=== PATIENT | male | born 1975 | race Caucasian/White ===

== ENCOUNTER 2020-08-22 18:50 | Inpatient (IN) | payer SELFPAY ==
[~2020-08-22] VITALS: Ht 172.7 cm; Wt 100.7 kg
[2020-08-22 18:56] VITALS: BP 128/69
--- NOTE | 2020-08-22 19:10 | NUR ---
PATIENT AMBUALTED TO BED 11 WITH STEADY GAIT.
--- NOTE | 2020-08-22 19:16 | NUR ---
PATIENT 44 Y/O MALE BIB SELF FOR C/O GENERALIZED WEAKNESS X 1 MONTH. PATIENT PRESENTS WITH RUQ AND LUQ ABD PAIN X 1 MONTH. PATIENT STATES HE HAS "LIVER PROBLEMS." D/T DRINKING 1 PINT OF WHISKEY DAILY X 1 MONTH. PATIENT DENIES N/V. PATIENT STATES STOOLS ARE DARK BLACK ON COLOR. PATIENT NOTED WITH BLEEDING GUMS. PATIENT NOTED WITH JAUNDICE. BLIATERAL PITTING EDEMA +1 NOTED ON BLE. PATIENT ON CARIDAC MONITOR. VSS. MEDHX: "LIVER ISSUES" ALLERGIES" NKA
--- NOTE | 2020-08-22 19:20 | NUR ---
IV PLACED IN L AC 20G. LABS DRAWN AND GIVEN TO ELECTRONIC COILS SUPERVISOR.
--- NOTE | 2020-08-22 19:22 | NUR ---
Narinder crisostomo in ED - 08/22/20 at 1931 by [id number] ERMD AT BEDSIDE EVALUATING PATIENT.
--- NOTE | 2020-08-22 19:22 | NUR ---
ERMD AT BEDSIDE EVALUATING PATIENT.
[2020-08-22] MEDS ORDERED: NACL 0.9% 1,000 ML IV ONE (19:30)
[2020-08-22] MEDS ORDERED: THIAMINE 200 MG/2 ML VIAL IM ONE (19:30)
[2020-08-22] MEDS ORDERED: FOLIC ACID 5 MG/ML SYR IM ONE (19:30)
[2020-08-22] MEDS ORDERED: MAG SULF 2000 MG/WATER PREMIX 50 ML IV ONE (19:30)
--- NOTE | 2020-08-22 19:30 | NUR ---
ekg performed at bedside. ekg reads sinus tachycardia @ 106
--- NOTE | 2020-08-22 19:30 | NUR ---
EKG BEING PERFORMED AT BEDSIDE.
--- NOTE | 2020-08-22 19:32 | NUR ---
XRAY AT BEDSIDE.
[2020-08-22] MEDS ORDERED: MULTIVITAMIN-12 10 ML in NACL 0.9% 1,000 ML IV SCH (19:45)
[2020-08-22 19:47] LABS: BASOPHILS # (AUTO) 0.1 K/uL (0.00-0.22); BASOPHILS % (AUTO) 2.6 % (0.0-2.0); EOSINOPHILS # (AUTO) 0.2 K/uL (0-0.4); EOSINOPHILS % (AUTO) 3.9 % (0.0-4.0); LYMPHOCYTES # (AUTO) 1.4 K/uL (2.0-11.5); LYMPHOCYTES % (AUTO) 25.7 % (20.5-51.1); MEAN CORPUSCULAR HEMOGLOBIN 24 pg (27-31); MEAN CORPUSCULAR HGB CONC 32 g/dL (33-37); MEAN CORPUSCULAR VOLUME 74.7 fL (80-94); MONOCYTES # (AUTO) 0.7 K/uL (0.8-1.0); MONOCYTES % (AUTO) 12.2 % (1.7-9.3); NEUTROPHILS % (AUTO) 55.6 % (42.2-75.2); PLATELET COUNT (AUTO) 88 K/uL (140-450); RED BLOOD CELL COUNT(AUTO) 1.92 MIL/uL (4.20-6.10); RED CELL DISTRIBUTION WIDTH 17.8 % (11.6-13.7); WHITE BLOOD COUNT (AUTO) 5.4 K/uL (4.8-10.8)
[2020-08-22] MEDS ORDERED: MULTIVITAMIN-12 10 ML VIAL IV ONE (19:50)
[2020-08-22 19:56] LABS: HEMATOCRIT 14.4 % (36-52); HEMOGLOBIN 4.5 g/dL (12.0-18.0)
[2020-08-22] MEDS ORDERED: PANTOPRAZOLE 40 MG INJ VIAL IVP ONE (20:10)
--- NOTE | 2020-08-22 20:13 | NUR ---
US AT BEDSIDE. BLOOD TRANSFUSION CONSENT SIGNED BY PATIENT.
[2020-08-22 20:14] LABS: PROTHROMBIN TIME 21.6 secs (10.8-13.4)
[2020-08-22 20:16] LABS: ALBUMIN 2.4 g/dL (3.4-5.0); ANION GAP 9.5 (8-16); CARBON DIOXIDE 26.8 mmol/L (21-32); CREATININE 0.5 mg/dL (0.6-1.3); POTASSIUM 3.3 mmol/L (3.5-5.1); TOTAL BILIRUBIN 3.7 mg/dL (0.0-1.0)
--- NOTE | 2020-08-22 20:59 | NUR ---
ELLE AND EREN COLLECTED AND SENT TO LAB.
[2020-08-22] MEDS ORDERED: POTASSIUM CHLORIDE 10 MEQ TABER PO ONE ×2 (21:45→22:05)
--- NOTE | 2020-08-22 22:02 | NUR ---
RECTAL EXAM PERFORMED BY ROXANN.
[2020-08-22] MEDS ORDERED: PROTHROMBIN COMPLEX HUMAN 500 UNITS KIT IV ONE (22:05)
--- NOTE | 2020-08-22 22:05 | NUR ---
Per ERMD administer 2500 units of KCentra due to elevated PTT , INR and decreased Platelet count.
--- NOTE | 2020-08-22 22:45 | NUR ---
Consent signed per PATIENT agreeing to administration of blood. Blood has been type and crossmatched. Blood sent from blood bank. Information on unit of blood checked against patient wristband at bedside by two nurses. All information matches. Patient or responsible constitution party informed of potential complications associated with blood transfusion. Informed of possible transfusion reaction symptoms. Aware of need to notify nurse at once of itching, shortness of breath, flushing, feeling of impending doom, or other symptoms not previously present. Vital signs taken within 5 minutes prior to initiation of transfusion. RN will remain with patient for first 15 minutes of transfusion at which time vital signs will be re-assessed.
[2020-08-22] MEDS ORDERED: ZOLPIDEM 5 MG TAB PO PRN (22:50)
[2020-08-22] MEDS ORDERED: ONDANSETRON 4 MG/2 ML VIAL IM/IVP PRN (22:50)
[2020-08-22] MEDS ORDERED: DOCUSATE SODIUM 100 MG GELCAP PO PRN (22:50)
[2020-08-22] MEDS ORDERED: POTASSIUM CHLORIDE 10 MEQ TABER PO PRN (22:50)
[2020-08-22] MEDS ORDERED: guaiFENesin DM 200/20 MG-10 ML 10 ML UDC PO PRN (22:50)
[2020-08-22] MEDS ORDERED: ACETAMINOPHEN 325 MG TAB PO PRN (22:50)
[2020-08-22] MEDS ORDERED: PHYTONADIONE 10 MG/ML AMP SUBQ ONE (23:00)
[2020-08-22] MEDS ORDERED: IRON SUCROSE COMPLEX 100 MG/5 ML VIAL IVP ONE (23:00)
[2020-08-22 23:24] LABS: CHOL/HDL RATIO 3.4 (1-4.5); FREE T4 (FREE THYROXINE) 1.2 ng/dL (0.76-1.46); MAGNESIUM 1.6 mg/dL (1.8-2.4); PHOSPHORUS 3.9 mg/dL (2.5-4.9); THYROID STIMULATING HORMONE 1.26 uIU/mL (0.34-3.74)
[2020-08-22 23:37] LABS: APPEARANCE,URINE CLEAR (CLEAR); BILIRUBIN,URINE 1+ (NEGATIVE); BLOOD, URINE 1+ (NEGATIVE); COLOR,URINE YELLOW (YELLOW); LEUKOCYTE ESTERASE ,URINE NEGATIVE (NEGATIVE); NITRITE, URINE NEGATIVE (NEGATIVE); UGLUCOSE NEGATIVE (NEGATIVE)
[2020-08-22 23:44] LABS: RBC,URINE 0-5 /HPF (0-5); WBC,URINE 0-5 /HPF (0-5)
[2020-08-22 23:45] LABS: BARBITURATE, URINE NEGATIVE ng/ml (NEG <=200); BENZODIAZEPINE, URINE NEGATIVE ng/mL (NEG <=200); CANNABINOID, URINE NEGATIVE ng/mL (NEG <=50); COCAINE, URINE NEGATIVE ng/mL (NEG <=300); OPIATE, URINE NEGATIVE ng/mL (NEG <=2000); PHENCYCLIDINE SCREEN,URINE NEGATIVE ng/mL (NEG <=25)
--- NOTE | 2020-08-23 00:42 | NUR ---
Patient appears to be resting comfortably in bed. Vital Signs within normal limits. Respirations even and unlabored. No adverse reaction noted from blood transfusion.
[2020-08-23] MEDS: DEXT 5% /NACL 0.9% 1,000 ML IV SCH ×4 (01:25→13:56)
--- NOTE | 2020-08-23 01:30 | NUR ---
Patient will be admitted to care of . Admited to TELE. Will go to room 114. Belongings list completed. Report to LORI RN given.
[2020-08-23 02:35] VITALS: BP 131/72
--- NOTE | 2020-08-23 02:35 | NUR ---
ADMITTED A 44M FROM ER. CAME BY DEBBIE DUE TO EPIGASTRIC PAIN , SWELLING OF BOTH FEET, GEN WEAKNESS WHO HAS BLOOD IN STOOL PREVIOUSLY. NO SOB NOTED AT THIS TIME. 99% O2 SAT ON RA. CAME IN WITH LOW HGB AND HCT COUNT. JUST HAD I UNIT PRBC GIVEN IN ER. NEED 2 MORE UNITS . ON TELE MONITOR-ST. AWAKE,ALERT AND ORIENTED X4. AMBULATE BUT WITH SLIGHT WEAKNESS NOTED. PLAN OF CARE DISCUSSED AND VERBALIZED UNDERSTANDING. FREQ ROUNDS NEEDED. PCR COVID-19 TEST PENDING. PLACED ON DROPLET PRECAUTION UNTIL RESULT CAME IN. ORIENTED TO HOSPITAL ROUTINES. BED ON LOW POSITION. SIDE RAILS UP X2. CALL LIGHT AND URINAL WITHIN EASY REACH. WILL CONTINUE TO MONITOR.
--- NOTE | 2020-08-23 03:30 | NUR ---
2ND UNIT PRBC STARTED AFTER VERIFIED WITH ANOTHER RN, LAY WITH THE PT. VITAL SIGNS TAKEN PRIOR TO START OF TRANSFUSION. WILL CONTINUE TO MONITOR.
[2020-08-23 04:00] VITALS: BP 141/73
[2020-08-23] MEDS ORDERED: IRON SUCROSE COMPLEX 100 MG/5 ML VIAL ONE (04:20)
[2020-08-23] MEDS ORDERED: PHYTONADIONE 10 MG/ML AMP ONE (04:20)
--- NOTE | 2020-08-23 05:00 | NUR ---
BLOOD TRANSFUSION STILL GOING ON. NO REACTION NOTED . WILL CONTINUE TO MONITOR.
--- NOTE | 2020-08-23 05:56 | NUR ---
INSTRUCTED PT THE NEED FOR STOOL FOR OB. CONTAINER IN BATHROOM.
--- NOTE | 2020-08-23 07:12 | NUR ---
2ND UNIT PRBC TRANSFUSED WITH NO REACTION NOTED. VITAL SIGNS STABLE.
--- NOTE | 2020-08-23 07:30 | NUR ---
ENDORSED PT IN STABLE CONDITION TO AM NURSE.
[2020-08-23 08:00] VITALS: BP 133/74
--- NOTE | 2020-08-23 08:14 | NUR ---
PATIENT IS AOX4, CROATIAN SPEAKING, SINUS TACHY ON TRACK SUPERVISOR, RESPIRATIONS EVEN AND UNLABORED ON ROOM AIR. PATIENT DENIES PAIN. AMBULATING TO BATHROOM, STEADY. HAD 1X DARK TARRY STOOL. NOTED BLEEDING IN GUMS, GAVE PATIENT GAUZE TO PREVENT FURTHER BLEEDING. UPDATED PATIENT ON PLAN OF CARE. IV FLUIDS INFUSING. WILL CONTINUE TO MONITOR
--- NOTE | 2020-08-23 08:28 | NUR ---
PATIENT HAS BEEN SCREENED AND CATEGORIZED MODERATE NUTRITION RISK. PATIENT WILL BE SEEN WITHIN 3-5 DAYS OF ADMISSION. 08/25/20 08/27/[address]
[2020-08-23 09:11] LABS: BASOPHILS # (AUTO) 0.1 K/uL (0.00-0.22); EOSINOPHILS # (AUTO) 0.1 K/uL (0-0.4); MONOCYTES # (AUTO) 0.6 K/uL (0.8-1.0)
[2020-08-23 09:26] LABS: BASOPHILS % (AUTO) 1.3 % (0.0-2.0); EOSINOPHILS % (AUTO) 1.6 % (0.0-4.0); HEMATOCRIT 20.9 % (36-52); LYMPHOCYTES # (AUTO) 0.8 K/uL (2.0-11.5); LYMPHOCYTES % (AUTO) 16.7 % (20.5-51.1); MEAN CORPUSCULAR HEMOGLOBIN 25 pg (27-31); MEAN CORPUSCULAR HGB CONC 32 g/dL (33-37); MEAN CORPUSCULAR VOLUME 78.9 fL (80-94); MONOCYTES % (AUTO) 11.8 % (1.7-9.3); NEUTROPHILS # (AUTO) 3.4 K/uL (1.8-7.7); NEUTROPHILS % (AUTO) 68.6 % (42.2-75.2); PLATELET COUNT (AUTO) 81 K/uL (140-450); RED BLOOD CELL COUNT(AUTO) 2.65 MIL/uL (4.20-6.10); RED CELL DISTRIBUTION WIDTH 17.4 % (11.6-13.7)
[2020-08-23 09:29] LABS: HEMOGLOBIN 6.7 g/dL (12.0-18.0)
[2020-08-23] MEDS: PANTOPRAZOLE 40 MG INJ VIAL IVP SCH (09:36)
[2020-08-23 09:37] LABS: ANION GAP 11.6 (8-16); CARBON DIOXIDE 22.9 mmol/L (21-32); CREATININE 0.5 mg/dL (0.6-1.3); POTASSIUM 3.5 mmol/L (3.5-5.1)
--- NOTE | 2020-08-23 11:41 | NUR ---
STARTED BLOOD TRANSFUSION. EXPLAINED S/S TRANSFUSION REACTION. VITALS STABLE AT THIS TIME. WILL MONITOR CLOSELY.
[2020-08-23 12:00] VITALS: BP 139/76
[2020-08-23] MEDS ORDERED: OCTREOTIDE ACETATE 1.25 MG in NACL 0.9% 250 ML IV SCH (13:00)
--- NOTE | 2020-08-23 13:45 | NUR ---
PATIENT FINISHED 1U PRBC BLOOD TRANSFUSION, TOLERATED WELL WITH NO TRANSFUSION REACTIONS NOTED.
--- NOTE | 2020-08-23 14:00 | NUR ---
OCTREOTIDE DRIP STARTED. UPDATED DR. VILLANUEVA, NO NEED TO TRANSFER TO ICU.
--- NOTE | 2020-08-23 15:22 | NUR ---
SOCIAL WORK NOTE: Patient's Orientation Person Situation Place Time Information Provided By PATIENT Comments SW MET WITH PATIENT AT BEDSIDE TO COMPLETE ASSESSMENT. Volunteer Services Coordinator, Realtionship and Phone Number ANDI KEITA [phone] Healthcare Power of Retail Specialist No Does Patient Have a POLST No Identifying Problems Substance Abuse Is A Social Work Consult Needed No Mandate Report Filed No Explanation Of Identifying Problems PATIENT IS A 44-YEAR-OLD MALE ADMITTED FOR NEW ONSET CIRRHOSIS. PATIENT HAS PMHX OF ALCOHOL ABUSE. HARLEY PROVIDED PATIENT SUBSTANCE ABUSE RESOURCES. Admitted From Home Pre-Admission Level Of Functioning Status Independent/Ambulatory Prior Resources/Services Used In Last 12 Months Substance Use Prior DME No Prior DME Used Dialysis Comments N/A Living Situation Apartment Lives With Family Other Living Situation/Comment PATIENT STATED THAT HE LIVES WITH HIS NIECE AND HE IS NOW WITH . Patient Had Caregiver No Home Support No Caregiver Issues Financial Issues No Known Financial Issue Referral To The Financial Counselor Needed No Factors/Needs Drug/Alcohol Treatment Pt/Rep Participated In Discharge Plan Yes Patient/Family Agress With Discharge Plan Yes Discharge Plan Comments TENTATIVE DISCHARGE PLAN IS FOR PATIENT TO RETURN HOME. DC Plan Status Initiated
[2020-08-23 15:36] LABS: HEMATOCRIT 22.9 % (36-52); HEMOGLOBIN 7.5 g/dL (12.0-18.0)
--- NOTE | 2020-08-23 15:45 | NUR ---
REPEAT HGB/HCT 7.5. NOTIFIED DR. VILLANUEVA. ORDERS TO KEEP 1UPRBC ON STANDBY.
[2020-08-23 16:00] VITALS: BP 132/69
--- NOTE | 2020-08-23 18:51 | NUR ---
PATIENT DENIES PAIN. IV FLUIDS INFUSING WITH OCTREOTIDE DRIP. ONLY HAD 1X DARK TARRY BM TODAY. STILL BLEEDING FROM GUMS. NPO. WILL ENDORSE TO NIGHT RN.
[2020-08-23 20:00] VITALS: BP 123/66
--- NOTE | 2020-08-23 22:00 | NUR ---
PER AM BNURSE PT HAD GUM BLEEDING - WILL MONITOR ACTIVE BLEEDING .
[2020-08-24] VITALS: BP 112/66
--- NOTE | 2020-08-24 | NUR ---
MADE ROUNDS , NO S/X OF ACUTE DISTRESS NOTED
[2020-08-24 04:00] VITALS: BP 112/63
--- NOTE | 2020-08-24 04:00 | NUR ---
O2 SAT WNL . NO S/X OF ACUTE DISTRESS .
--- NOTE | 2020-08-24 06:30 | NUR ---
PER PT WHEN HE WIPED HIS EYES THERE IS STREAK BLOOD ON TISSUE PAPER- ASSESS EYES - NO SIGNS OF BLEEDING NOTED . WILL ENDORSE.
[2020-08-24] MEDS: DEXT 5% /NACL 0.9% 1,000 ML IV SCH ×2 (06:50→18:00)
[2020-08-24 07:15] LABS: ANION GAP 11.3 (8-16); CARBON DIOXIDE 23.8 mmol/L (21-32); CREATININE 0.6 mg/dL (0.6-1.3); POTASSIUM 4.1 mmol/L (3.5-5.1)
--- NOTE | 2020-08-24 07:30 | NUR ---
ENDORSED- PT - STABLE
--- NOTE | 2020-08-24 07:30 | NUR ---
RECEIVED REPORT FROM NIGHT NURSE PT IS AAOX4, ROOM AIR, AMBULATORY, NPO EXCEPT MEDS POSITIVE OCCULT BLOOD, S/P 3 UNITS PRBC AND 1 UNIT PRBC STANDBY, LIVER ULTRASOUND POSITIVE FOR LIVER DISEASE, WITH SANDOSTATIN AT 10CC/HR. IV INTACT ON RIGHT AC AND LEFT AC. PCR PENDING. SAFETY MEASURES IN PLACE AND CALL LIGHT WITHIN REACH. WILL CONTINUE TO MONITOR.
[2020-08-24 08:00] VITALS: BP 120/67
[2020-08-24] MEDS: PANTOPRAZOLE 40 MG INJ VIAL IVP SCH (08:24)
--- NOTE | 2020-08-24 08:24 | NUR ---
MEDICATION DUE GIVEN CHECK VITAL SIGNS PRIOR TO MEDICATION BP 120/67 [place] 96.WITH MINIMAL BLEEDING IN THE GUMS.
[2020-08-24 08:56] LABS: BASOPHILS # (AUTO) 0.1 K/uL (0.00-0.22); BASOPHILS % (AUTO) 1.2 % (0.0-2.0); EOSINOPHILS # (AUTO) 0.2 K/uL (0-0.4); EOSINOPHILS % (AUTO) 2.7 % (0.0-4.0); HEMATOCRIT 21.6 % (36-52); LYMPHOCYTES # (AUTO) 0.8 K/uL (2.0-11.5); LYMPHOCYTES % (AUTO) 13.1 % (20.5-51.1); MEAN CORPUSCULAR HEMOGLOBIN 25 pg (27-31); MEAN CORPUSCULAR HGB CONC 32 g/dL (33-37); MEAN CORPUSCULAR VOLUME 80.1 fL (80-94); MONOCYTES # (AUTO) 0.9 K/uL (0.8-1.0); MONOCYTES % (AUTO) 13.2 % (1.7-9.3); NEUTROPHILS # (AUTO) 4.5 K/uL (1.8-7.7); NEUTROPHILS % (AUTO) 69.8 % (42.2-75.2); PLATELET COUNT (AUTO) 96 K/uL (140-450); RED BLOOD CELL COUNT(AUTO) 2.69 MIL/uL (4.20-6.10); RED CELL DISTRIBUTION WIDTH 17.2 % (11.6-13.7); WHITE BLOOD COUNT (AUTO) 6.5 K/uL (4.8-10.8)
[2020-08-24 09:12] LABS: HEMOGLOBIN 6.8 g/dL (12.0-18.0)
--- NOTE | 2020-08-24 09:44 | NUR ---
RECEIVED CRITICAL LAB FROM LAB HEMOGLOBIN 6.[address] RICH RICHARDS AND RECEIVED ORDER TO TRANSFUSE 1 UNIT PRBC. I UNIT PRBC ON STANDBY AT BLOOD BANK.
--- NOTE | 2020-08-24 10:30 | NUR ---
BLOOD TRANSFUSION STARTED VITAL SIGNS TAKEN BP 132/71 [place] 00 RR 20 TEMP 98.6 OXYGEN SATURATION 98% NO TRANSFUSION REACTION AND EDUCATED PT OF ANY SIGNS OR SYMPTOMS OF TRANSFUSION REACTION. NO DISTRESS NOTED.
--- NOTE | 2020-08-24 10:48 | NUR ---
MADE A FOLLOW UP CALL TO DR. Wily DIXON REGARDING THE GI CONSULT, DR. DIXON STATED HE WILL COME IN AN HOUR.
[2020-08-24 12:00] VITALS: BP 118/62
--- NOTE | 2020-08-24 12:30 | NUR ---
PATIENT WAS SEEN BY DR DIXON AND RECOMMENDED FOR EGD, EPLAINED THE PROCEDURE TO THE PATIENT AND FAMILY PATIENT AGREED TO DO THE PROCEDURE AND SIGNED THE CONSENT ALL QUESTIONS ARE ANSWERED.
[2020-08-24] MEDS ORDERED: PHYTONADIONE 10 MG/ML AMP IV SCH (13:00)
--- NOTE | 2020-08-24 13:34 | NUR ---
VITAMIN K GIVEN TO THE PATIENT TOLERATED WELL,
--- NOTE | 2020-08-24 13:45 | NUR ---
BLOOD TRANSFUSION COMPLETE NO TRANSFUSION REACTION PT IS STABLE.
--- NOTE | 2020-08-24 13:50 | NUR ---
PATIENT OUT OF HIS ROOM FOR EGD UNDER DR DIXON. PT IS STILL TRANSFUSING BLOOD AND PT IS STILL STABLE.
[2020-08-24] MEDS ORDERED: fentaNYL citrate 0.05 MG/ML VIAL ONE (14:00)
[2020-08-24] MEDS ORDERED: MIDAZOLAM 5 MG/5 ML VIAL ONE (14:01)
[2020-08-24] MEDS ORDERED: diphenhydrAMINE 50 MG/ML VIAL ONE (14:01)
[2020-08-24] MEDS: MIDAZOLAM 2 MG/2 ML VIAL IVP SCH ×2 (14:10→15:30)
[2020-08-24] MEDS: fentaNYL citrate 0.05 MG/ML VIAL IVP SCH ×2 (14:11→15:27)
--- NOTE | 2020-08-24 14:36 | NUR ---
PATIENT BACK IN HIS ROOM NO GI BLEED CHECK VITAL SIGNS BP 87/55 [place] 90 RR 22 TEMP 99.7 OXYGEN SATURATION 94% WILLL RECHECK AND MONITOR PATIENT.
[2020-08-24] MEDS ORDERED: SIMETHICONE 40 MG/0.6 ML ONE (15:55)
[2020-08-24 16:00] VITALS: BP 112/63
[2020-08-24] MEDS: FERROUS GLUCONATE 324 MG TAB PO SCH (16:49)
--- NOTE | 2020-08-24 17:00 | NUR ---
MEDICATION DUE GIVEN PT IS STABLE NO DISTRESS NOTED AND NO BLEEDING NOTED.
[2020-08-24 18:16] LABS: HEMATOCRIT 23.9 % (36-52); HEMOGLOBIN 7.5 g/dL (12.0-18.0)
[2020-08-24 18:29] LABS: FOLIC ACID 11.9 ng/mL (>3.0)
--- NOTE | 2020-08-24 19:15 | NUR ---
ENDORSED TO NIGHT NURSE FOR CONTINUITY OF CARE. PT IS STABLE.
--- NOTE | 2020-08-24 19:16 | NUR ---
RECEIVED BEDSIDE REPORT FROM DAY TAVO FOWLER. PT AOX4 ON ROOM AIR. NO S/S RESPIRATORY DISTRESS. IV SITE LAC 20G PATENT INTACT, INFUSING IVF ORDERED. SAFETY MEASURES IN PLACE. CALL LIGHT WITHIN REACH. WILL CONTINUE TO MONITOR
[2020-08-24 20:00] VITALS: BP 116/69
[2020-08-24] MEDS: LACTULOSE 20 GM/30 ML UDC PO SCH (20:43)
[2020-08-24] MEDS: HYDROcodone/APAP 7.5/325 MG 1 TAB PO PRN (20:46)
--- NOTE | 2020-08-24 20:46 | NUR ---
ADMINISTERED SCHEDULED MEDICATION. PRN NORCO GIVEN FOR PT C/O OF BILATERAL LOWER BACK PAIN. SAFETY MEASURES IN PLACE. CALL LIGHT WITHIN REACH. WILL CONTINUE TO MONITOR
--- NOTE | 2020-08-24 22:17 | NUR ---
PT ASLEEP IN BED. RESPIRATIONS EVEN UNLABORED. NO DISTRESS NOTED. BED IN LOW POSITION. CALL LIGHT WITHIN REACH. WILL CONTINUE TO MONITOR
[2020-08-25] VITALS: BP 106/66
[2020-08-25] MEDS: DEXT 5% /NACL 0.9% 1,000 ML IV SCH (01:21)
--- NOTE | 2020-08-25 01:21 | NUR ---
PT AWAKE RESTING IN BED. DENIES PAIN, DENIES DISCOMFORT. NO DISTRESS NOTED. BED IN LOW POSITION. CALL LIGHT WITHIN REACH. WILL CONTINUE TO MONITOR
--- NOTE | 2020-08-25 03:31 | NUR ---
PT ASLEEP IN BED, CHEST RISE AND FALL NOTED. BED IN LOW POSITION, CALL LIGHT WITHIN REACH. WILL CONTINUE TO MONITOR
[2020-08-25 04:00] VITALS: BP 141/78
[2020-08-25 06:28] LABS: BASOPHILS # (AUTO) 0.1 K/uL (0.00-0.22); BASOPHILS % (AUTO) 1.6 % (0.0-2.0); EOSINOPHILS # (AUTO) 0.4 K/uL (0-0.4); EOSINOPHILS % (AUTO) 4.9 % (0.0-4.0); HEMATOCRIT 25.2 % (36-52); HEMOGLOBIN 8.1 g/dL (12.0-18.0); LYMPHOCYTES # (AUTO) 1.6 K/uL (2.0-11.5); LYMPHOCYTES % (AUTO) 18.7 % (20.5-51.1); MEAN CORPUSCULAR HEMOGLOBIN 26 pg (27-31); MEAN CORPUSCULAR HGB CONC 32 g/dL (33-37); MEAN CORPUSCULAR VOLUME 81.1 fL (80-94); MONOCYTES # (AUTO) 1.4 K/uL (0.8-1.0); MONOCYTES % (AUTO) 16.7 % (1.7-9.3); NEUTROPHILS # (AUTO) 4.8 K/uL (1.8-7.7); NEUTROPHILS % (AUTO) 58.1 % (42.2-75.2); PLATELET COUNT (AUTO) 106 K/uL (140-450); RED CELL DISTRIBUTION WIDTH 17.6 % (11.6-13.7); WHITE BLOOD COUNT (AUTO) 8.3 K/uL (4.8-10.8)
--- NOTE | 2020-08-25 06:38 | NUR ---
PT RESTING IN BED. NO BLEEDING NOTED. PT HAD BROWN SMEAR ON TOILET PAPER. NO DISTRESS NOTED. BED ON LOW POSITION. CALL LIGHT WITHIN REACH. WILL CONTINUE TO MONITOR
[2020-08-25 06:44] LABS: ANION GAP 11.9 (8-16); CARBON DIOXIDE 24.2 mmol/L (21-32); CREATININE 0.7 mg/dL (0.6-1.3); POTASSIUM 4.1 mmol/L (3.5-5.1)
--- NOTE | 2020-08-25 07:25 | NUR ---
ENDORSED PT TO DAY RN FOR CONTINUITY OF CARE. PT IS IN STABLE CONDITION
[2020-08-25 08:00] VITALS: BP 122/67
--- NOTE | 2020-08-25 08:55 | NUR ---
Patient awake, alert and oriented, able to verbalize needs. Denies pain safety
[2020-08-25] MEDS: LACTULOSE 20 GM/30 ML UDC PO SCH (10:11)
[2020-08-25] MEDS: FERROUS GLUCONATE 324 MG TAB PO SCH ×2 (10:11→18:46)
[2020-08-25] MEDS: PANTOPRAZOLE 40 MG INJ VIAL IVP SCH (10:12)
[2020-08-25] MEDS: HYDROcodone/APAP 7.5/325 MG 1 TAB PO PRN ×2 (10:17→15:11)
--- NOTE | 2020-08-25 13:34 | NUR ---
DC PLANN[age] YRS OLD MALE PATIENT WAS ADMITTED FROM HOME WITH A DX OF NEW ONSET OF CIRRHOSIS, GI BLEEDING AND SEVER ANEMIA. PT HAS A HX OF SEVER ALCOHOLISM. H/H ON ADMISSION. 6.8/21.6 TRANSFUSED 4 UNIT OS PRBC H/H 8.1/25.2. GI DR DIXON PERFORMED EGD NO ACTIVE BLEEDING. AWAITING FOR H -PYLORIC RESULT. REFURBISH TECHNICIAN TO EVALUATE FOR ALCOHOL ABUSE. DC PLAN TO GO HOME WHEN STABLE CM TO FOLLOW
[2020-08-25 14:09] VITALS: BP 122/67
--- NOTE | 2020-08-25 14:32 | NUR ---
Patient keeps complaining of lower abdomen pain that goes to flank area. Called and got an order from Dr Latham to do KUB
[2020-08-25 20:00] VITALS: BP 129/77
--- NOTE | 2020-08-25 20:00 | NUR ---
RECEIVED PT AWAKE, ALERT,ORIENTED X4. PT LAYING IN BED WATCHING TV. DENIES ANY CHEST PAIN, ABDOMINAL PAIN, NAUSEA & VOMITING. PT ABLE TO WALK TO THE BATHROOM WITH NO DISTRESS. VSS ,AFEBRILE, SATING 98% ON RA. SR ON CREDENTIALING SPECIALIST, HR-94. IVF INFUSING ORDERED. CALL LIGHT WITHIN REACH. WILL CONTINUE POC AND MONITORING.
--- NOTE | 2020-08-25 22:00 | NUR ---
NO MEDICATION DUE AT THIS TIME. PATIENT HAS NO COMPLAIN AT THIS MOMENT. CALL LIGHT WITHIN REACH.
[2020-08-26] VITALS: BP 122/78
--- NOTE | 2020-08-26 | NUR ---
MADE ROUNDS. PT CURRENTLY SLEEPING. CALL LIGHT WITHIN REACH.
--- NOTE | 2020-08-26 02:00 | NUR ---
PATIENT ASLEEP AT THIS TIME. VISIBLE CHEST RISE AND FALL NOTED. CALL LIGHT WITHIN REACH
[2020-08-26 04:00] VITALS: BP 120/68
--- NOTE | 2020-08-26 04:00 | NUR ---
VITAL SIGNS STABLE, AFEBRILE, SATING 99% ON RA. NO COMPLAIN OF PAIN AT THIS TIME. SINUS RHYTHM ON STATION REPAIRER, HR-82.
--- NOTE | 2020-08-26 06:00 | NUR ---
NO ACUTE EVENTS THROUGHOUT THE NIGHT. PATIENT STABLE. NO COMPLAIN AT THIS TIME. WILL ENDORSE THE PT TO THE ONCOMING RN FOR CONTINUITY OF CARE. CALL LIGHT WITHIN REACH.
[2020-08-26 07:14] LABS: BASOPHILS # (AUTO) 0.2 K/uL (0.00-0.22); BASOPHILS % (AUTO) 2.8 % (0.0-2.0); EOSINOPHILS # (AUTO) 0.4 K/uL (0-0.4); EOSINOPHILS % (AUTO) 6.9 % (0.0-4.0); HEMATOCRIT 24.1 % (36-52); HEMOGLOBIN 7.7 g/dL (12.0-18.0); LYMPHOCYTES % (AUTO) 18.9 % (20.5-51.1); MEAN CORPUSCULAR HEMOGLOBIN 26 pg (27-31); MEAN CORPUSCULAR HGB CONC 32 g/dL (33-37); MEAN CORPUSCULAR VOLUME 80.9 fL (80-94); MONOCYTES # (AUTO) 0.9 K/uL (0.8-1.0); MONOCYTES % (AUTO) 16.4 % (1.7-9.3); PLATELET COUNT (AUTO) 105 K/uL (140-450); RED BLOOD CELL COUNT(AUTO) 2.98 MIL/uL (4.20-6.10); RED CELL DISTRIBUTION WIDTH 17.9 % (11.6-13.7); WHITE BLOOD COUNT (AUTO) 5.5 K/uL (4.8-10.8)
--- NOTE | 2020-08-26 07:20 | NUR ---
RECEIVED ENDORSEMENT FROM BANKMAN NURSE FOR CONTINUATION OF CARE. PATIENT IN BED AOX4. ON ROOM AIR. PATIENT HAS REGULAR DIET. IV SITE IN PLACE AND INTACT. SAFETY MEASURES ARE IN PLACE. CALL LIGHT WITHIN REACH. WILL CONTINUE TO MONITOR NEEDED.
[2020-08-26 07:28] LABS: ANION GAP 11.4 (8-16); CARBON DIOXIDE 22.2 mmol/L (21-32); CREATININE 0.6 mg/dL (0.6-1.3); POTASSIUM 3.6 mmol/L (3.5-5.1)
[2020-08-26 08:00] VITALS: BP 123/70
[2020-08-26] MEDS ORDERED: LACTULOSE 20 GM/30 ML UDC PO SCH (09:00)
[2020-08-26] MEDS ORDERED: FOLIC ACID 1 MG TAB PO SCH (09:00)
[2020-08-26] MEDS ORDERED: THIAMINE 100 MG TAB PO SCH (09:00)
--- NOTE | 2020-08-26 09:01 | NUR ---
08/26/20 RD INITIAL ASSESSMENT COMPLETED. PLEASE REFER TO NUTRITION ASSESSMENT UNDER CARE ACTIVITY FOR ESTIMATED NUTRITIONAL NEEDS. RD RECOMMENDATIONS: 1. RECOMMEND CONTINUE REGULAR DIET; SUFFICIENT TO MEET ESTIMATED ENERGY & PROTEIN NEEDS. 2. F/U 3-5 DAYS; MODERATE RISK CHRISTY ZAIDI MBA, RD
[2020-08-26] MEDS: FERROUS GLUCONATE 324 MG TAB PO SCH (09:22)
--- NOTE | 2020-08-26 09:26 | NUR ---
SCHEDULED MEDICATIONS GIVEN. PATIENT IS STABLE. WILL CONTINUE TO MONITOR NEEDED.
[2020-08-26] MEDS ORDERED: FURO-570 PO (11:57)
[2020-08-26] MEDS ORDERED: PANT40EC PO (11:57)
[2020-08-26] MEDS ORDERED: FOLI1TAB90 PO (11:57)
[2020-08-26] MEDS ORDERED: FERR324T11 PO (11:57)
[2020-08-26] MEDS ORDERED: THIA-34 PO (11:57)
[2020-08-26 12:48] VITALS: BP 141/82
--- NOTE | 2020-08-26 13:45 | NUR ---
PATIENT HAS BEEN DISCHARGED. REMOVED IV LINE REDNESS, PAIN, OR SWELLING. NAME BANDS REMOVED. TELEMETRY MACHINE REMOVED. PATIENT IS STABLE. INFORMED PATIENT AND FAMILY MEMBER ABOUT DISCHARGE INSTRUCTIONS. VERBALIZED UNDERSTANDING.
== END 2020-08-26 13:40 | disposition home or self-care (01) | DRG 432 ==
LOC: MED 18:50 → MTU 22:23
PROVIDERS: ADMIT Family Medicine; ATTEND Family Medicine
PROC: 30233N1 Transfusion of Nonautologous Red Blood Cells into Peripheral Vein, Percutaneous Approach (ICD-10-PCS; principal; 2020-08-22)
PROC: 0DB68ZX Excision of Stomach, Via Natural or Artificial Opening Endoscopic, Diagnostic (ICD-10-PCS; 2020-08-24)
DX: K70.30 Alcoholic cirrhosis of liver without ascites (principal); G92 Toxic encephalopathy; E43 Unspecified severe protein-calorie malnutrition; D68.9 Coagulation defect, unspecified; Z20.822 Contact with and (suspected) exposure to COVID-19; R60.1 Generalized edema; D64.9 Anemia, unspecified; E11.65 Type 2 diabetes mellitus with hyperglycemia; Z68.33 Body mass index [BMI] 33.0-33.9, adult; R74.01 Elevation of levels of liver transaminase levels
CPT/HCPCS: 36415; 71045; 74018; 76705; 80048; 80053; 80305; 81001; 82150; 82272; 82607; 82728; 82746; 83036; 83540; 83690; 83735; 83880; 84100; 84436; 84439; 84443; 84479; 84484; 85018; 85025; 85045; 85610; 85730; 86677; 86886; 86900; 86901; 86920; 87081; 93005; 96365; 96366; 96368; 96375; 99291; A9153; C9113; C9132; G0482; J1200; J1756; J2250; J2354; J3010; J3411; J3430; J3475; J3490; J7030; J7042; J7060; P9016; U0003